=== PATIENT | male | born 1975 | race Caucasian/White ===

== ENCOUNTER 2018-07-15 19:12 | Observation (INO) | payer SELFPAY ==
[2018-07-15] MEDS ORDERED: Sodium Chloride 0.9% 10 ML Syringe FLUSH PRN (19:28)
[2018-07-15] MEDS ORDERED: HYDROmorphone 0.5 MG/0.5 ML SYRINGE IVPUSH ONE ×2 (20:01→23:01)
[2018-07-15] MEDS ORDERED: Ondansetron 4 MG/2 ML SDV IVPUSH STA (20:34)
[2018-07-15] MEDS ORDERED: Nitroglycerin 2% Oint 1 GM UD Packet TOP ONE (21:49)
[2018-07-15] MEDS ORDERED: Clopidogrel 75 MG Tab PO ONE (21:50)
[2018-07-15] MEDS ORDERED: Enoxaparin 100 MG/1 ML Syringe SUBCUT ONE (21:51)
--- NOTE | 2018-07-16 00:45 | EDM.PDOC ---
ED HPI GENERAL MEDICAL PROBLEM - General Chief Complaint: Chest Pain Stated Complaint: CHEST PAIN Time Seen by Provider: 07/15/18 19:23 Source of Information: Reports: Patient History Limitations: Reports: No Limitations - History of Present Illness INITIAL COMMENTS - FREE TEXT/NARRATIVE: The patient presents with chest pain. He says the pain started just as he was leaving [employer] in [place]. The pain is pressure like in his left chest. He has a little shortness of breath with it. He has no cough, congestion, runny nose, fever, or chills. He has no abdominal pain, nausea or vomiting. He did have an [facility] at age 24 according to the patient. He had a heart cath but no stents or CABG was needed. He has no swelling or pain in his legs. He does have a history or PEs. Onset: Gradual Duration: Hour(s): Location: Reports: Chest Quality: Reports: Pressure Severity: Moderate Improves with: Reports: None Worsens with: Reports: None Associated Symptoms: Reports: Chest Pain, Shortness of Breath. Denies: Cough, Fever/Chills, Headaches, Nausea/Vomiting Left Chest Pain Score (Numeric/FACES): 8 - Related Data Allergies Allergy/AdvReac Type Severity Reaction Status Date / Time Penicillins Allergy Anaphylactic Verified 07/15/18 19:23 Shock Sulfa (Sulfonamide Allergy Anaphylactic Verified 07/15/18 19:23 Antibiotics) Shock Home Meds: Home Meds Aspirin [Halfprin] 81 mg PO DAILY 07/15/18 [History] SitaGLIPtin [Januvia] 100 mg PO DAILY 07/15/18 [History] amLODIPine [Norvasc] 10 mg PO DAILY 07/15/18 [History] Past Medical History Cardiovascular History: Reports: [facility] Respiratory History: Reports: PE Endocrine/Metabolic History: Reports: Diabetes, Type II Social & Family History - Tobacco Use Smoking Status *Q: Current Every Day Smoker Years of Tobacco use: 25 Packs/Tins Daily: 0.5 - Caffeine Use Caffeine Use: Reports: Coffee, Soda - Recreational Drug Use Recreational Drug Use: No ED ROS GENERAL - Review of Systems Review Of Systems: See Below Constitutional: Reports: No Symptoms HEENT: Reports: No Symptoms Respiratory: Reports: Shortness of Breath Cardiovascular: Reports: Chest Pain Endocrine: Reports: No Symptoms GI/Abdominal: Reports: No Symptoms : Reports: No Symptoms Musculoskeletal: Reports: No Symptoms ED EXAM, GENERAL - Physical Exam Exam: See Below Exam Limited By: No Limitations General Appearance: Alert, No Apparent Distress Ears: Normal External Exam Nose: Normal Inspection Head: Atraumatic, Normocephalic Neck: Normal Inspection Respiratory/Chest: No Respiratory Distress, Lungs Clear, Normal Breath Sounds Cardiovascular: Regular Rate, Rhythm, No Edema, No Murmur GI/Abdominal: Soft, Non-Tender, No Organomegaly, No Mass Neurological: Alert, Oriented, No Motor/Sensory Deficits EKG INTERPRETATION EKG Date: 07/15/18 Time: 19:23 Rhythm: NSR Rate (Beats/Min): 94 [place]: Normal P-Wave: Present QRS: Normal ST-T: Normal QT: Normal Course - Vital Signs Last Recorded V/S: Last Vital Signs Temp 98.2 F 07/15/18 19:25 Pulse 96 07/15/18 19:25 Resp 17 07/15/18 19:25 BP 133/94 H 07/15/18 19:25 Pulse Ox 99 07/15/18 19:25 - Orders/Labs/Meds Orders: Active Orders 24 hr Category Date Time Status Cardiac Monitoring [RC] . DIRECTED Care 07/15/18 19:28 Active EKG Documentation Completion [RC] STAT Care 07/15/18 19:29 Active Oxygen Therapy [RC] PRN Care 07/15/18 19:28 Active Peripheral IV Care [RC] . DIRECTED Care 07/15/18 19:29 Active Chest 1V Frontal [CR] Stat Exams 07/15/18 19:29 Taken Sodium Chloride 0.9% [Saline Flush] Med 07/15/18 19:28 Active 10 ml FLUSH ASDIRECTED PRN Peripheral IV Insertion Adult [OM.PC] Stat Oth 07/15/18 19:28 Ordered Medication Orders Sodium Chloride (Saline Flush) 10 ml FLUSH ASDIRECTED PRN PRN Reason: Keep Vein Open Last Admin: 07/15/18 19:30 Dose: 10 ml Labs: Laboratory Tests 07/15/18 07/15/18 07/15/18 Range/Units 19:20 19:20 19:20 WBC 10.47 H (4.23-9.07) K/mm3 RBC 5.39 (4.63-6.08) M/mm3 Hgb 16.0 (13.7-17.5) gm/L Hct 45.6 (40.1-51.0) % MCV 84.6 (79.0-92.2) fl MCH 29.7 (25.7-32.2) pg MCHC 35.1 (32.2-35.5) g/dl RDW Std Deviation 42.0 (35.1-43.9) fL Plt Count 269 (163-337) K/mm3 MPV 9.7 (9.4-12.3) fl Neut % (Auto) 59.5 (34.0-67.9) % Lymph % (Auto) 30.9 (21.8-53.1) % [place] % (Auto) 6.3 (5.3-12.2) % Eos % (Auto) 2.7 (0.8-7.0) Baso % (Auto) 0.3 (0.1-1.2) % Neut # (Auto) 6.23 H (1.78-5.38) K/mm3 Lymph # (Auto) 3.24 (1.32-3.57) K/mm3 [place] # (Auto) 0.66 (0.30-0.82) K/mm3 Eos # (Auto) 0.28 (0.04-0.54) K/mm3 Baso # (Auto) 0.03 (0.01-0.08) K/mm3 D-Dimer, Quantitative < 0.19 L (0.19-0.50) mg/L Sodium 138 (136-145) mEq/L Potassium 3.4 L (3.5-5.1) mEq/L Chloride 102 (98-107) mEq/L Carbon Dioxide 25 (21-32) mEq/L Anion Gap 14.4 (5-15) BUN 13 (7-18) mg/dL Creatinine 1.1 (0.7-1.3) mg/dL Est Cr Clr Drug Dosing 83.46 mL/min Estimated GFR (MDRD) > 60 (>60) mL/min BUN/Creatinine Ratio 11.8 L (14-18) Glucose 156 H (74-106) mg/dL Calcium 8.6 (8.5-10.1) mg/dL Total Bilirubin 0.3 (0.2-1.0) mg/dL AST 14 L (15-37) U/L ALT 28 (16-63) U/L Alkaline Phosphatase 123 H (46-116) U/L Troponin I < 0.017 (0.00-0.056) ng/mL Total Protein 7.8 (6.4-8.2) g/dl Albumin 3.7 (3.4-5.0) g/dl Globulin 4.1 gm/dL Albumin/Globulin Ratio 0.9 L (1-2) Meds: Medications Generic Name Dose Route Start Last Admin Trade Name Freq PRN Reason Stop Dose Admin Sodium Chloride 10 ml 07/15/18 19:28 07/15/18 19:30 Saline Flush FLUSH 10 ml ASDIRECTED PRN Administration Keep Vein Open Discontinued Medications Generic Name Dose Route Start Last Admin Trade Name Freq PRN Reason Stop Dose Admin Clopidogrel Bisulfate 75 mg 07/15/18 21:50 07/15/18 22:14 Plavix PO 07/15/18 21:51 75 mg ONETIME ONE Administration Enoxaparin Sodium 100 mg 07/15/18 21:51 07/15/18 22:16 Lovenox SUBCUT 07/15/18 21:52 100 mg ONETIME ONE Administration Hydromorphone HCl 0.5 mg 07/15/18 20:01 07/15/18 20:31 Dilaudid IVPUSH 07/15/18 20:02 0.5 mg ONETIME ONE Administration Hydromorphone HCl 1 mg 07/15/18 23:01 07/15/18 23:14 Dilaudid IVPUSH 07/15/18 23:02 1 mg ONETIME ONE Administration Nitroglycerin 1 gm 07/15/18 21:49 07/15/18 22:17 Nitro-Bid 2% TOP 07/15/18 21:50 1 gm ONETIME ONE Administration Ondansetron HCl 4 mg 07/15/18 20:34 07/15/18 20:38 Zofran IVPUSH 07/15/18 20:35 4 mg ONETIME STA Administration - Re-Assessments/Exams Free Text/Narrative Re-Assessment/Exam: 07/16/18 00:44 I ordered an IV saline lock, EKG, CXR, and labs. The patient took some aspirin before arrival. His EKG shows a NSR with no acute changes. His WBC was slightly elevated. His K was low at 3.4. His glucose was elevated at 156. His Alk Phos was elevated at 123. His troponin was negative. He had more pain and he says nitro gives him a headache so I ordered some dilaudid. I feel he needs to be admitted for a chest pain rule out. He still has chest pain. I talked to Dr Pulido and she agreed but she did want plavix, nitro patch and lovenox. I ordered all of those. 07/16/18 00:48 Departure - Departure Time of Disposition: 00:50 Disposition: Refer to Observation Condition: Good Clinical Impression: Chest pain Qualifiers: Chest pain type: unspecified Qualified Code(s): R07.9 - Chest pain, unspecified - My Orders Last 24 Hours: My Active Orders 07/15/18 19:28 Cardiac Monitoring [RC] . DIRECTED Oxygen Therapy [RC] PRN Sodium Chloride 0.9% [Saline Flush] 10 ml FLUSH ASDIRECTED PRN Peripheral IV Insertion Adult [OM.PC] Stat 07/15/18 19:29 EKG Documentation Completion [RC] STAT Peripheral IV Care [RC] . DIRECTED Chest 1V Frontal [CR] Stat - Assessment/Plan Last 24 Hours: My Active Orders 07/15/18 19:28 Cardiac Monitoring [RC] . DIRECTED Oxygen Therapy [RC] PRN Sodium Chloride 0.9% [Saline Flush] 10 ml FLUSH ASDIRECTED PRN Peripheral IV Insertion Adult [OM.PC] Stat 07/15/18 19:29 EKG Documentation Completion [RC] STAT Peripheral IV Care [RC] . DIRECTED Chest 1V Frontal [CR] Stat
[2018-07-16] MEDS ORDERED: Simvastatin 20 MG Tab PO ONE (01:01)
[2018-07-16] MEDS ORDERED: Nitroglycerin 0.4 MG Tab.SL SL PRN (01:03)
[2018-07-16] MEDS ORDERED: Morphine 2 MG/ML Syringe IVPUSH PRN (01:04)
[2018-07-16] MEDS ORDERED: Acetaminophen 325 MG Tab PO PRN (01:05)
[2018-07-16] MEDS ORDERED: Temazepam 7.5 MG Cap PO PRN (01:06)
[2018-07-16] MEDS ORDERED: Clopidogrel 75 MG Tab PO ONE (01:08)
--- NOTE | 2018-07-16 07:39 | PCM.HP ---
H&P History of Present Illness - General Date of Service: 07/16/18 Admit Problem/Dx: Admission Diagnosis/Problem Admission Diagnosis/Problem Chest pain Source of Information: Patient, Old Records, Provider, RN History Limitations: Reports: No Limitations - History of Present Illness Initial Comments - Free Text/Narative: Noel Tenorio is a 42 yo male who presented to our ED yesterday evening with chest pain. The symptoms started while he was shopping in [place]. He described it a a pressure in his chest and mild shortness of breath. Denies any abdominal pain, nausea, vomiting, cough, congestion, [place], fever, or chills. Per the patient he did have an DE at age 24. Had a heart catheter but no stents or CABG were needed. He does have a history of prior PEs. In the ED a 12-lead EKG was obtained and interpreted by the ED provider as normal sinus rhythm at a rate of 94 bpm. No other abnormalities were noted. Temp is 98.2 Fahrenheit. Pulse 96. Respirations 17. BP 133/94. Pulse ox 99% . Labs were obtained. There is mild leukocytosis at 10.47. Hemoglobin 16. Hematocrit 45.6. He is normocytic. Bloods are good at 269,000. Neutrophils normal at 59.5%. D-dimer is less than 0.19. Sodium is 138. Potassium 3.4. Chloride 102. Carbon dioxide 25. Anion gap is 14.4. BUN is 13. Creatinine 1.1. EGFR greater than 60. Glucose is high at 156. Calcium 8.6. Liver enzymes looked good with AST at 14, ALT at 28, alkaline phospy elevated at 123. Troponin is negative at less than 0.017. Protein 7.8. Albumin 3.7. He started on Lovenox and Plavix. He is also given Dilaudid for pain and a nitroglycerin patch. Zofran was given for nausea. The patient did reportedly takes an aspirin prior to arrival. He carries a history of prior DE and PE. He also has type II DM. He is a current every day half pack per day smoker. His PCP is not in the area. And he is a full code. He is subsequently admitted to the medical floor on telemetry under observation status. Left Chest Pain Score (Numeric/FACES): 8 - Related Data Allergies/Adverse Reactions: Allergies Allergy/AdvReac Type Severity Reaction Status Date / Time Penicillins Allergy Anaphylactic Verified 07/15/18 19:23 Shock Sulfa (Sulfonamide Allergy Anaphylactic Verified 07/15/18 19:23 Antibiotics) Shock Home Medications: Home Meds Aspirin [Halfprin] 81 mg PO DAILY 07/15/18 [History] SitaGLIPtin [Januvia] 100 mg PO DAILY 07/15/18 [History] amLODIPine [Norvasc] 10 mg PO DAILY 07/15/18 [History] atorvaSTATin [Lipitor] 20 mg PO DAILY 07/16/18 [History] Past Medical History Cardiovascular History: Reports: DE Respiratory History: Reports: PE Endocrine/Metabolic History: Reports: Diabetes, Type II Social & Family History - Family History Family Medical History: Noncontributory - Tobacco Use Smoking Status *Q: Current Every Day Smoker Years of Tobacco use: 25 Packs/Tins Daily: 0.5 Second Hand Smoke Exposure: Yes - Caffeine Use Caffeine Use: Reports: Coffee, Soda - Recreational Drug Use Recreational Drug Use: No H&P Review of Systems - Review of Systems: Review Of Systems: See Below General: Reports: No Symptoms. Denies: Fever, Chills, Malaise, Weakness, Fatigue HEENT: Reports: No Symptoms. Denies: Post Nasal Drip, Sore Throat, Visual Changes Pulmonary: Denies: Shortness of Breath, Wheezing, Cough, Sputum Cardiovascular: Reports: Chest Pain. Denies: Palpitations, Dyspnea on Exertion , Edema, Lightheadedness Gastrointestinal: Reports: Abdominal Pain (left upper quadrant ), Diarrhea ( chronic loose stools ). Denies: Constipation, Distension, Nausea, Vomiting Genitourinary: Reports: No Symptoms Musculoskeletal: Reports: No Symptoms Skin: Reports: No Symptoms Psychiatric: Reports: No Symptoms Neurological: Reports: No Symptoms Hematologic/Lymphatic: Reports: No Symptoms Immunologic: Reports: No Symptoms Exam - Exam Exam: See Below - Vital Signs Vital Signs: Last Vital Signs Temp 98.2 F 07/16/18 00:32 Pulse 79 07/16/18 00:32 Resp 18 07/16/18 00:32 BP 133/85 07/16/18 00:32 Pulse Ox 94 L 07/16/18 00:32 Weight: 219 lb 8 oz - Exam Quality Assessment: DVT Prophylaxis General: Alert, Oriented, Cooperative HEENT: Conjunctiva Clear, EACs Clear, EOMI, Hearing Intact, Mucosa Moist & Powder[place] , Posterior Pharynx Clear, PERRLA Neck: Supple, Trachea Midline Lungs: Clear to Auscultation, Normal Respiratory Effort Cardiovascular: Regular Rate, Regular Rhythm GI/Abdominal Exam: Normal Bowel Sounds, Soft, No Distention, No Mass, Tender ( LUQ) (Male) Exam: Deferred Rectal (Males) Exam: Deferred Back Exam: Normal Inspection, Full Range of Motion Extremities: Normal Inspection, Normal Range of Motion, Non-Tender, No Pedal Edema, Normal Capillary Refill Peripheral Pulses: 2+: Radial (L), Radial (R), Posterior Tibial (L), Posterior Tibial (R), Dorsalis Pedis (L), Dorsalis Pedis (R) Skin: Warm, Dry, Intact Neurological: Cranial Nerves Intact (grossly ) Neuro Extensive - Mental Status: Alert, Oriented x3, Normal Mood/Affect, Normal Cognition, Memory Intact - Patient Data Lab Results Last 24 hrs: Laboratory Results - last 24 hr 07/15/18 07/15/18 07/15/18 Range/Units 19:20 19:20 19:20 WBC 10.47 H (4.23-9.07) K/mm3 RBC 5.39 (4.63-6.08) M/mm3 Hgb 16.0 (13.7-17.5) gm/L Hct 45.6 (40.1-51.0) % MCV 84.6 (79.0-92.2) fl MCH 29.7 (25.7-32.2) pg MCHC 35.1 (32.2-35.5) g/dl RDW Std Deviation 42.0 (35.1-43.9) fL Plt Count 269 (163-337) K/mm3 MPV 9.7 (9.4-12.3) fl Neut % (Auto) 59.5 (34.0-67.9) % Lymph % (Auto) 30.9 (21.8-53.1) % [place] % (Auto) 6.3 (5.3-12.2) % Eos % (Auto) 2.7 (0.8-7.0) Baso % (Auto) 0.3 (0.1-1.2) % Neut # (Auto) 6.23 H (1.78-5.38) K/mm3 Lymph # (Auto) 3.24 (1.32-3.57) K/mm3 [place] # (Auto) 0.66 (0.30-0.82) K/mm3 Eos # (Auto) 0.28 (0.04-0.54) K/mm3 Baso # (Auto) 0.03 (0.01-0.08) K/mm3 Neutrophils % (Manual) (40-60) % Band Neutrophils % (0-10) % Lymphocytes % (Manual) (20-40) % Atypical Lymphs % % Monocytes % (Manual) (2-10) % Eosinophils % (Manual) (0.8-7.0) % Basophils % (Manual) (0.2-1.2) Platelet Estimate RBC Morph Comment D-Dimer, Quantitative < 0.19 L (0.19-0.50) mg/L Sodium 138 (136-145) mEq/L Potassium 3.4 L (3.5-5.1) mEq/L Chloride 102 (98-107) mEq/L Carbon Dioxide 25 (21-32) mEq/L Anion Gap 14.4 (5-15) BUN 13 (7-18) mg/dL Creatinine 1.1 (0.7-1.3) mg/dL Est Cr Clr Drug Dosing 83.46 mL/min Estimated GFR (MDRD) > 60 (>60) mL/min BUN/Creatinine Ratio 11.8 L (14-18) Glucose 156 H (74-106) mg/dL Calcium 8.6 (8.5-10.1) mg/dL Magnesium (1.8-2.4) mg/dl Total Bilirubin 0.3 (0.2-1.0) mg/dL AST 14 L (15-37) U/L ALT 28 (16-63) U/L Alkaline Phosphatase 123 H (46-116) U/L Troponin I < 0.017 (0.00-0.056) ng/mL Total Protein 7.8 (6.4-8.2) g/dl Albumin 3.7 (3.4-5.0) g/dl Globulin 4.1 gm/dL Albumin/Globulin Ratio 0.9 L (1-2) Triglycerides (<150) mg/dL Cholesterol (<200) mg/dL LDL Cholesterol Direct (<100) mg/dL HDL Cholesterol (40-59) mg/dL 07/16/18 07/16/18 07/16/18 Range/Units 05:25 05:25 05:25 WBC 9.53 H (4.23-9.07) K/mm3 RBC 5.29 (4.63-6.08) M/mm3 Hgb 15.3 (13.7-17.5) gm/L Hct 45.3 (40.1-51.0) % MCV 85.6 (79.0-92.2) fl MCH 28.9 (25.7-32.2) pg MCHC 33.8 (32.2-35.5) g/dl RDW Std Deviation 41.8 (35.1-43.9) fL Plt Count 253 (163-337) K/mm3 MPV 9.6 (9.4-12.3) fl Neut % (Auto) (34.0-67.9) % Lymph % (Auto) (21.8-53.1) % [place] % (Auto) (5.3-12.2) % Eos % (Auto) (0.8-7.0) Baso % (Auto) (0.1-1.2) % Neut # (Auto) (1.78-5.38) K/mm3 Lymph # (Auto) (1.32-3.57) K/mm3 [place] # (Auto) (0.30-0.82) K/mm3 Eos # (Auto) (0.04-0.54) K/mm3 Baso # (Auto) (0.01-0.08) K/mm3 Neutrophils % (Manual) 46 (40-60) % Band Neutrophils % 1 (0-10) % Lymphocytes % (Manual) 44 H (20-40) % Atypical Lymphs % 0 % Monocytes % (Manual) 5 (2-10) % Eosinophils % (Manual) 2 (0.8-7.0) % Basophils % (Manual) 2 H (0.2-1.2) Platelet Estimate Adequate RBC Morph Comment Normal D-Dimer, Quantitative (0.19-0.50) mg/L Sodium 139 (136-145) mEq/L Potassium 3.9 (3.5-5.1) mEq/L Chloride 105 (98-107) mEq/L Carbon Dioxide 26 (21-32) mEq/L Anion Gap 11.9 (5-15) BUN 16 (7-18) mg/dL Creatinine 1.1 (0.7-1.3) mg/dL Est Cr Clr Drug Dosing 83.46 mL/min Estimated GFR (MDRD) > 60 (>60) mL/min BUN/Creatinine Ratio 14.5 (14-18) Glucose 97 (74-106) mg/dL Calcium 8.3 L (8.5-10.1) mg/dL Magnesium 2.1 (1.8-2.4) mg/dl Total Bilirubin (0.2-1.0) mg/dL AST (15-37) U/L ALT (16-63) U/L Alkaline Phosphatase (46-116) U/L Troponin I < 0.017 (0.00-0.056) ng/mL Total Protein (6.4-8.2) g/dl Albumin (3.4-5.0) g/dl Globulin gm/dL Albumin/Globulin Ratio (1-2) Triglycerides 230 H (<150) mg/dL Cholesterol 184 (<200) mg/dL LDL Cholesterol Direct 136 H* (<100) mg/dL HDL Cholesterol 26.0 L (40-59) mg/dL Result Diagrams: 07/16/18 05:25 07/16/18 05:25 - Problem List (1) Chest pain SNOMED Code(s): 33332752 ICD Code: R07.9 - CHEST PAIN, UNSPECIFIED Status: Acute Priority: High Current Visit: Yes Qualifiers: Chest pain type: unspecified Qualified Code(s): R07.9 - Chest pain, unspecified (2) Type II diabetes mellitus SNOMED Code(s): 49757199 ICD Code: E11.9 - TYPE 2 DIABETES MELLITUS WITHOUT COMPLICATIONS Status: Chronic Priority: Medium Current Visit: Yes Qualifiers: Diabetes mellitus middle or intermediate school principal insulin use: without middle or intermediate school principal use Diabetes mellitus complication status: without complication Qualified Code(s): E11.9 - Type 2 diabetes mellitus without complications (3) History of pulmonary embolus (PE) SNOMED Code(s): 243179283 ICD Code: Z86.711 - PERSONAL HISTORY OF PULMONARY EMBOLISM Status: Chronic Priority: Low Current Visit: No (4) HLD (hyperlipidemia) SNOMED Code(s): 76156240 ICD Code: E78.5 - HYPERLIPIDEMIA, UNSPECIFIED Status: Acute Priority: Medium Current Visit: Yes Qualifiers: Hyperlipidemia type: unspecified Qualified Code(s): E78.5 - Hyperlipidemia , unspecified (5) Tobacco use disorder SNOMED Code(s): 220027588 ICD Code: F17.200 - NICOTINE DEPENDENCE, UNSPECIFIED, UNCOMPLICATED Status : Acute Priority: High Current Visit: Yes Problem List Initiated/Reviewed/Updated: Yes Orders Last 24hrs: Active Orders 24 hr Category Date Time Status Patient Status [ADT] Routine ADT 07/15/18 23:50 Active Cardiac Monitoring [RC] . DIRECTED Care 07/15/18 19:28 Active EKG Documentation Completion [RC] ASDIRECTED Care 07/16/18 08:00 Active EKG Documentation Completion [RC] STAT Care 07/15/18 19:29 Active Oxygen Therapy [RC] PRN Care 07/15/18 19:28 Active Peripheral IV Care [RC] Q2HR Care 07/15/18 19:29 Active Heart Healthy Diet [DIET] Diet 07/16/18 Breakfast Active Chest 1V Frontal [CR] Stat Exams 07/15/18 19:29 Taken Echo Comp wo Cont [US] Routine Exams 07/16/18 00:59 Ordered BASIC METABOLIC PANEL,BMP [CHEM] AM Lab 07/17/18 05:11 Ordered BASIC METABOLIC PANEL,BMP [CHEM] AM Lab 07/18/18 05:11 Ordered BASIC METABOLIC PANEL,BMP [CHEM] AM Lab 07/19/18 05:11 Ordered BASIC METABOLIC PANEL,BMP [CHEM] AM Lab 07/20/18 05:11 Ordered CBC WITH AUTO DIFF [HEME] AM Lab 07/17/18 05:11 Ordered CBC WITH AUTO DIFF [HEME] AM Lab 07/18/18 05:11 Ordered CBC WITH AUTO DIFF [HEME] AM Lab 07/19/18 05:11 Ordered CBC WITH AUTO DIFF [HEME] AM Lab 07/20/18 05:11 Ordered MAGNESIUM [CHEM] AM Lab 07/17/18 05:11 Ordered MAGNESIUM [CHEM] AM Lab 07/18/18 05:11 Ordered MAGNESIUM [CHEM] AM Lab 07/19/18 05:11 Ordered MAGNESIUM [CHEM] AM Lab 07/20/18 05:11 Ordered Acetaminophen [Tylenol] Med 07/16/18 01:05 Active 650 mg PO Q6H PRN Alogliptin Benzoate [Alogliptin] Med 07/16/18 09:00 Active 25 mg PO DAILY Aspirin [Halfprin] Med 07/16/18 09:00 Active 81 mg PO DAILY Clopidogrel [Plavix] Med 07/16/18 09:00 Active 75 mg PO DAILY HCTZ/Triamterene [Dyazide 25-37.5 MG] Med 07/16/18 09:00 Active 1 each PO DAILY Metoprolol Tartrate [Lopressor] Med 07/16/18 09:00 Active 25 mg PO BID Morphine Med 07/16/18 01:04 Active 0.5 mg IVPUSH Q2H PRN Nitroglycerin [Nitrostat] Med 07/16/18 01:03 Active 0.4 mg SL Q5M PRN Sodium Chloride 0.9% [Saline Flush] Med 07/15/18 19:28 Active 10 ml FLUSH ASDIRECTED PRN Temazepam [Restoril] Med 07/16/18 01:06 Active 7.5 mg PO BEDTIME PRN amLODIPine [Norvasc] Med 07/16/18 09:00 Active 10 mg PO DAILY Peripheral IV Insertion Adult [OM.PC] Stat Oth 07/15/18 19:28 Ordered Resuscitation Status Routine Resus Stat 07/16/18 01:18 Ordered EKG 12 Lead [EK] Routine Ther 07/16/18 08:00 Ordered Medication Orders Acetaminophen (Tylenol) 650 mg PO Q6H PRN PRN Reason: Pain/Fever Alogliptin Benzoate (Alogliptin) 25 mg PO DAILY [facility] Amlodipine Besylate (Norvasc) 10 mg PO DAILY [facility] Aspirin (Halfprin) 81 mg PO DAILY [facility] Clopidogrel Bisulfate (Plavix) 75 mg PO DAILY [facility] Metoprolol Tartrate (Lopressor) 25 mg PO BID [facility] Morphine Sulfate (Morphine) 0.5 mg IVPUSH Q2H PRN PRN Reason: chest pain Nitroglycerin (Nitrostat) 0.4 mg SL Q5M PRN PRN Reason: Chest Pain Sodium Chloride (Saline Flush) 10 ml FLUSH ASDIRECTED PRN PRN Reason: Keep Vein Open Last Admin: 07/15/18 19:30 Dose: 10 ml Temazepam (Restoril) 7.5 mg PO BEDTIME PRN PRN Reason: Insomnia Triamterene/HCTZ (Dyazide 25-37.5 Mg) 1 each PO DAILY [facility] Assessment/Plan Comment:: I/P: Acute: Atypical chest pain -Reports pain started earlier in day on 07/15/18 -Hx/o DE, PE, Type II DM; Reportedly had heart cath but no CABG or stents were placed -Accompanied by SOB -Troponin negative in ED and on floor (<0.017) -Lipid panel: Triglycerides 230, Total cholesterol 184, LDL 136, HDL 26 -Nitro patch to be removed today -Stress test - outpatient -Echo today -laboratory monitor -PRN Nitroglycerine -Was given 1mg/kg lovenox in ED, started on plavix, ASA continued -Statin Tobacco use disorder -Nicotine patch as ordered -Discuss smoking cessation -Consider smoking cessation aids on discharge Medical non-compliance -Notes that he stopped taking all medications recently and then resumed -Last refilled medications in August 2017 per pharmacy in [place] -Attempted to run check on narcotic history - nothing in area, we do not have access to [place] records -No PCP in area - Needs to establish Chronic: Hx/ of DE Hx/ of PE Type II DM - A1C 5.7 Plan: Admit to medical floor on telemetry, observation status Other orders as indicated above Home meds as ordered DVT prophylaxis GI prophylaxis: Pepcid Code status: Full code; PCP: not from area
[2018-07-16] MEDS ORDERED: Ondansetron 4 MG/2 ML SDV IV PRN (08:44)
[2018-07-16] MEDS ORDERED: Ondansetron 4 MG Tab.DIS PO PRN (08:44)
[2018-07-16] MEDS ORDERED: Albuterol/Ipratropium 3.0-0.5 MG/3 ML Neb Soln NEB PRN (08:44)
[2018-07-16] MEDS ORDERED: Metoprolol Tartrate 25 MG Tab PO SCH (09:00)
[2018-07-16] MEDS ORDERED: Famotidine 20 MG Tab PO SCH (09:00)
[2018-07-16] MEDS ORDERED: Aspirin 81 MG Tab.EC PO SCH (09:00)
[2018-07-16] MEDS ORDERED: Nicotine 14 MG/24 Hr Patch TRDERM SCH (09:00)
[2018-07-16] MEDS ORDERED: amLODIPine 10 MG Tab PO SCH (09:00)
[2018-07-16] MEDS ORDERED: Hydrochlorothiazide/Triamterene 25-37.5 MG Cap PO SCH (09:00)
[2018-07-16] MEDS ORDERED: Clopidogrel 75 MG Tab PO SCH (09:00)
[2018-07-16] MEDS ORDERED: Insulin Lispro 100 Unit/ML 3 ML KwikPen SUBCUT SCH (11:00)
[2018-07-16] MEDS ORDERED: Ibuprofen 600 MG Tab PO ONE (12:00)
--- NOTE | 2018-07-16 12:05 | PCM.DCSUM1 ---
Discharge Summary - Hospital Course HPI Initial Comments: Noel Tenorio is a 42 yo male who presented to our ED yesterday evening with chest pain. The symptoms started while he was shopping in [place]. He described it a a pressure in his chest and mild shortness of breath. Denies any abdominal pain, nausea, vomiting, cough, congestion, Lynda, fever, or chills. Per the patient he did have an MA at age 24. Had a heart catheter but no stents or CABG were needed. He does have a history of prior PEs. In the ED a 12-lead EKG was obtained and interpreted by the ED provider as normal sinus rhythm at a rate of 94 bpm. No other abnormalities were noted. Temp is 98.2 Fahrenheit. Pulse 96. Respirations 17. BP 133/94. Pulse ox 99% . Labs were obtained. There is mild leukocytosis at 10.47. Hemoglobin 16. Hematocrit 45.6. He is normocytic. Bloods are good at 269,000. Neutrophils normal at 59.5%. D-dimer is less than 0.19. Sodium is 138. Potassium 3.4. Chloride 102. Carbon dioxide 25. Anion gap is 14.4. BUN is 13. Creatinine 1.1. EGFR greater than 60. Glucose is high at 156. Calcium 8.6. Liver enzymes looked good with AST at 14, ALT at 28, alkaline phospy elevated at 123. Troponin is negative at less than 0.017. Protein 7.8. Albumin 3.7. He started on Lovenox and Plavix. He is also given Dilaudid for pain and a nitroglycerin patch. Zofran was given for nausea. The patient did reportedly takes an aspirin prior to arrival. He carries a history of prior MA and PE. He also has type II DM. He is a current every day half pack per day smoker. His PCP is not in the area. And he is a full code. He is subsequently admitted to the medical floor on telemetry under observation status. Diagnosis: Stroke: No - Discharge Data Discharge Date: 07/16/18 (Admit date: 07/16/18) Discharge Disposition: Home, Self-Care 01 Condition: Good - Discharge Diagnosis/Problem(s) (1) Chest pain SNOMED Code(s): 14195438 ICD Code: R07.9 - CHEST PAIN, UNSPECIFIED Status: Acute Priority: High Current Visit: Yes Qualifiers: Chest pain type: unspecified Qualified Code(s): R07.9 - Chest pain, unspecified (2) Type II diabetes mellitus SNOMED Code(s): 68135205 ICD Code: E11.9 - TYPE 2 DIABETES MELLITUS WITHOUT COMPLICATIONS Status: Chronic Priority: Medium Current Visit: Yes Qualifiers: Diabetes mellitus terminal superintendent insulin use: without skilled nursing use Diabetes mellitus complication status: without complication Qualified Code(s): E11.9 - Type 2 diabetes mellitus without complications (3) History of pulmonary embolus (PE) SNOMED Code(s): 093206639 ICD Code: Z86.711 - PERSONAL HISTORY OF PULMONARY EMBOLISM Status: Chronic Priority: Low Current Visit: No (4) HLD (hyperlipidemia) SNOMED Code(s): 74813868 ICD Code: E78.5 - HYPERLIPIDEMIA, UNSPECIFIED Status: Acute Priority: Medium Current Visit: Yes Qualifiers: Hyperlipidemia type: unspecified Qualified Code(s): E78.5 - Hyperlipidemia , unspecified (5) Tobacco use disorder SNOMED Code(s): 283387906 ICD Code: F17.200 - NICOTINE DEPENDENCE, UNSPECIFIED, UNCOMPLICATED Status : Acute Priority: High Current Visit: Yes - Patient Summary/Data Labs Pending at D/C: Awaiting echo results Recommended Follow-up Testing/Procedures: Follow-up with PCP the week after discharge. 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 He is refusing patches/assistance Medical non-compliance -Notes that he stopped taking all medications recently and then resumed -Last refilled medications in August 2017 per pharmacy in [place] -Attempted to run check on narcotic history - nothing in area, we do not have access to [place] records -No PCP in area - Needs to establish Chronic: Hx/ of MA Hx/ of PE Type II DM - A1C 5.7 Plan: Admit to medical floor on telemetry, observation status Other orders as indicated above Home meds as ordered DVT prophylaxis GI prophylaxis: Pepcid Code status: Full code; PCP: not from area Overall Noel did ok. He continued to have some chest pain and developed a headache from the nitroglycerine. This was discontinued. Labs continued to look good. Vital signs including HR and BP were very good during his stay. He continued to request dilaudid as he says nitroglycerine does not work. He also complained of some vague abdominal pain prior to discharge however he was ok with discharge. He is new to the area from [place]. He did tell me he quit taking many of his medications and then slowly resumed some recently. He was provided prescriptions for many of his medications as he stated he was out of many and needed refills. His lipid panel reinforces that he needs to continue his statin. A1C was checked and found to be 5.7. Explained to patient that we ruled out lung clots or heart attacks. He was given a prescription for nitroglycerine tablets and then his home meds as indicated. He was instructed to return to the ED or contact a PCP or walk-in clinic should pain worsen or change. This case was discussed in-depth with Dr. Pulido, Hospitalist. He was scheduled for a follow-up appointment next week to establish with a PCP as well as a stress test. Echo was obtained and results will be forwarded to PCP. I personally had a discussion with Noel about his smoking status. He states he has been cutting back and is now down from 1.5 packs per day to 0.5 packs per day. He declined tobacco cessation products such as patches or gum. He stated he has been doing well without them. We discussed options for help such as the [place] Quits line and his PCP, which would be excellent resources. - Patient Instructions Diet: Heart Healthy Diet Activity: As Tolerated Showering/Bathing: May Shower Notify Provider of: Fever, Increased Pain, Nausea and/or Vomiting - Discharge Plan *PRESCRIPTION DRUG MONITORING PROGRAM REVIEWED*: Yes *COPY OF PRESCRIPTION DRUG MONITORING REPORT IN PATIENT ILIA: Not Applicable Prescriptions/Med Rec: amLODIPine Besylate [Norvasc] 10 mg PO DAILY #20 tablet Aspirin [Halfprin] 81 mg PO DAILY #20 tab.ec Nitroglycerin [Nitrostat] 0.4 mg SL Q5M PRN #20 tab.sl PRN Reason: Chest Pain Home Medications: Home Meds SitaGLIPtin [Januvia] 100 mg PO DAILY 07/15/18 [History] Aspirin [Halfprin] 81 mg PO DAILY #20 tab.ec 07/16/18 [Rx] Nitroglycerin [Nitrostat] 0.4 mg SL Q5M PRN #20 tab.sl 07/16/18 [Rx] amLODIPine Besylate [Norvasc] 10 mg PO DAILY #20 tablet 07/16/18 [Rx] Patient Handouts: Coping with Quitting Smoking, Nonspecific Chest Pain, Easy-to -Read Forms: ED Department Discharge Referrals: Mary Powers MD [Physician] - - Discharge Summary/Plan Comment DC Time >30 min.: Yes (45 mins ) - General Info Date of Service: 07/16/18 Admission Dx/Problem (Free Text: Admission Diagnosis/Problem Admission Diagnosis/Problem Chest pain Subjective Update: In to see Noel. He is still having some chest pain and requests some pain medications for this. Explained how this is likely a musculoskeletal issue and narcotics are not indicated. He was given some ibuprofen prior to discharge. He describes some mile LUQ abdominal pain. No other complaints. No nursing complaints. He will be discharged today with plan for follow-up outpatient stress test and PCP visit. Functional Status: Reports: Pain Controlled, Tolerating Diet, Ambulating, Urinating. Denies: New Symptoms - Review of Systems General: Reports: No Symptoms. Denies: Fever, Weakness, Fatigue, Malaise, Chills HEENT: Reports: No Symptoms. Denies: Ear Pain, Eye Pain, Sore Throat Pulmonary: Reports: No Symptoms. Denies: Shortness of Breath, Cough, Sputum, Wheezing Cardiovascular: Reports: Chest Pain (left chest into arm), Lightheadedness ( chronic). Denies: Palpitations, Dyspnea on Exertion, Edema Gastrointestinal: Reports: Abdominal Pain (MIld LUQ), Diarrhea (chronic loose stools ). Denies: Constipation, Decreased Appetite, Nausea, Vomiting Genitourinary: Reports: No Symptoms Musculoskeletal: Reports: No Symptoms Skin: Reports: No Symptoms Neurological: Reports: No Symptoms Psychiatric: Reports: No Symptoms - Patient Data Vitals - Most Recent: Last Vital Signs Temp 98.2 F 07/16/18 08:57 Pulse 70 07/16/18 08:57 Resp 16 07/16/18 08:57 BP 120/86 07/16/18 09:01 Pulse Ox 95 07/16/18 08:57 Weight - Most Recent: 219 lb 8 oz I&O - Last 24 hours: Intake & Output 07/15/18 07/16/18 07/16/18 22:59 06:59 14:59 Intake Total 800 0 Balance 800 0 Lab Results - Last 24 hrs: Laboratory Results - last 24 hr 07/15/18 07/15/18 07/15/18 Range/Units 19:20 19:20 19:20 WBC 10.47 H (4.23-9.07) K/mm3 RBC 5.39 (4.63-6.08) M/mm3 Hgb 16.0 (13.7-17.5) gm/L Hct 45.6 (40.1-51.0) % MCV 84.6 (79.0-92.2) fl MCH 29.7 (25.7-32.2) pg MCHC 35.1 (32.2-35.5) g/dl RDW Std Deviation 42.0 (35.1-43.9) fL Plt Count 269 (163-337) K/mm3 MPV 9.7 (9.4-12.3) fl Neut % (Auto) 59.5 (34.0-67.9) % Lymph % (Auto) 30.9 (21.8-53.1) % [place] % (Auto) 6.3 (5.3-12.2) % Eos % (Auto) 2.7 (0.8-7.0) Baso % (Auto) 0.3 (0.1-1.2) % Neut # (Auto) 6.23 H (1.78-5.38) K/mm3 Lymph # (Auto) 3.24 (1.32-3.57) K/mm3 [place] # (Auto) 0.66 (0.30-0.82) K/mm3 Eos # (Auto) 0.28 (0.04-0.54) K/mm3 Baso # (Auto) 0.03 (0.01-0.08) K/mm3 Neutrophils % (Manual) (40-60) % Band Neutrophils % (0-10) % Lymphocytes % (Manual) (20-40) % Atypical Lymphs % % Monocytes % (Manual) (2-10) % Eosinophils % (Manual) (0.8-7.0) % Basophils % (Manual) (0.2-1.2) Platelet Estimate RBC Morph Comment D-Dimer, Quantitative < 0.19 L (0.19-0.50) mg/L Sodium 138 (136-145) mEq/L Potassium 3.4 L (3.5-5.1) mEq/L Chloride 102 (98-107) mEq/L Carbon Dioxide 25 (21-32) mEq/L Anion Gap 14.4 (5-15) BUN 13 (7-18) mg/dL Creatinine 1.1 (0.7-1.3) mg/dL Est Cr Clr Drug Dosing 83.46 mL/min Estimated GFR (MDRD) > 60 (>60) mL/min BUN/Creatinine Ratio 11.8 L (14-18) Glucose 156 H (74-106) mg/dL Hemoglobin A1c (4.50-6.20) % Calcium 8.6 (8.5-10.1) mg/dL Magnesium (1.8-2.4) mg/dl Total Bilirubin 0.3 (0.2-1.0) mg/dL AST 14 L (15-37) U/L ALT 28 (16-63) U/L Alkaline Phosphatase 123 H (46-116) U/L Troponin I < 0.017 (0.00-0.056) ng/mL Total Protein 7.8 (6.4-8.2) g/dl Albumin 3.7 (3.4-5.0) g/dl Globulin 4.1 gm/dL Albumin/Globulin Ratio 0.9 L (1-2) Triglycerides (<150) mg/dL Cholesterol (<200) mg/dL LDL Cholesterol Direct (<100) mg/dL HDL Cholesterol (40-59) mg/dL 07/16/18 07/16/18 07/16/18 Range/Units 05:02 05:25 05:25 WBC 9.53 H (4.23-9.07) K/mm3 RBC 5.29 (4.63-6.08) M/mm3 Hgb 15.3 (13.7-17.5) gm/L Hct 45.3 (40.1-51.0) % MCV 85.6 (79.0-92.2) fl MCH 28.9 (25.7-32.2) pg MCHC 33.8 (32.2-35.5) g/dl RDW Std Deviation 41.8 (35.1-43.9) fL Plt Count 253 (163-337) K/mm3 MPV 9.6 (9.4-12.3) fl Neut % (Auto) (34.0-67.9) % Lymph % (Auto) (21.8-53.1) % [place] % (Auto) (5.3-12.2) % Eos % (Auto) (0.8-7.0) Baso % (Auto) (0.1-1.2) % Neut # (Auto) (1.78-5.38) K/mm3 Lymph # (Auto) (1.32-3.57) K/mm3 [place] # (Auto) (0.30-0.82) K/mm3 Eos # (Auto) (0.04-0.54) K/mm3 Baso # (Auto) (0.01-0.08) K/mm3 Neutrophils % (Manual) 46 (40-60) % Band Neutrophils % 1 (0-10) % Lymphocytes % (Manual) 44 H (20-40) % Atypical Lymphs % 0 % Monocytes % (Manual) 5 (2-10) % Eosinophils % (Manual) 2 (0.8-7.0) % Basophils % (Manual) 2 H (0.2-1.2) Platelet Estimate Adequate RBC Morph Comment Normal D-Dimer, Quantitative (0.19-0.50) mg/L Sodium 139 (136-145) mEq/L Potassium 3.9 (3.5-5.1) mEq/L Chloride 105 (98-107) mEq/L Carbon Dioxide 26 (21-32) mEq/L Anion Gap 11.9 (5-15) BUN 16 (7-18) mg/dL Creatinine 1.1 (0.7-1.3) mg/dL Est Cr Clr Drug Dosing 83.46 mL/min Estimated GFR (MDRD) > 60 (>60) mL/min BUN/Creatinine Ratio 14.5 (14-18) Glucose 97 (74-106) mg/dL Hemoglobin A1c 5.70 (4.50-6.20) % Calcium 8.3 L (8.5-10.1) mg/dL Magnesium 2.1 (1.8-2.4) mg/dl Total Bilirubin (0.2-1.0) mg/dL AST (15-37) U/L ALT (16-63) U/L Alkaline Phosphatase (46-116) U/L Troponin I < 0.017 (0.00-0.056) ng/mL Total Protein (6.4-8.2) g/dl Albumin (3.4-5.0) g/dl Globulin gm/dL Albumin/Globulin Ratio (1-2) Triglycerides (<150) mg/dL Cholesterol (<200) mg/dL LDL Cholesterol Direct (<100) mg/dL HDL Cholesterol (40-59) mg/dL 07/16/18 Range/Units 05:25 WBC (4.23-9.07) K/mm3 RBC (4.63-6.08) M/mm3 Hgb (13.7-17.5) gm/L Hct (40.1-51.0) % MCV (79.0-92.2) fl MCH (25.7-32.2) pg MCHC (32.2-35.5) g/dl RDW Std Deviation (35.1-43.9) fL Plt Count (163-337) K/mm3 MPV (9.4-12.3) fl Neut % (Auto) (34.0-67.9) % Lymph % (Auto) (21.8-53.1) % [place] % (Auto) (5.3-12.2) % Eos % (Auto) (0.8-7.0) Baso % (Auto) (0.1-1.2) % Neut # (Auto) (1.78-5.38) K/mm3 Lymph # (Auto) (1.32-3.57) K/mm3 [place] # (Auto) (0.30-0.82) K/mm3 Eos # (Auto) (0.04-0.54) K/mm3 Baso # (Auto) (0.01-0.08) K/mm3 Neutrophils % (Manual) (40-60) % Band Neutrophils % (0-10) % Lymphocytes % (Manual) (20-40) % Atypical Lymphs % % Monocytes % (Manual) (2-10) % Eosinophils % (Manual) (0.8-7.0) % Basophils % (Manual) (0.2-1.2) Platelet Estimate RBC Morph Comment D-Dimer, Quantitative (0.19-0.50) mg/L Sodium (136-145) mEq/L Potassium (3.5-5.1) mEq/L Chloride (98-107) mEq/L Carbon Dioxide (21-32) mEq/L Anion Gap (5-15) BUN (7-18) mg/dL Creatinine (0.7-1.3) mg/dL Est Cr Clr Drug Dosing mL/min Estimated GFR (MDRD) (>60) mL/min BUN/Creatinine Ratio (14-18) Glucose (74-106) mg/dL Hemoglobin A1c (4.50-6.20) % Calcium (8.5-10.1) mg/dL Magnesium (1.8-2.4) mg/dl Total Bilirubin (0.2-1.0) mg/dL AST (15-37) U/L ALT (16-63) U/L Alkaline Phosphatase (46-116) U/L Troponin I (0.00-0.056) ng/mL Total Protein (6.4-8.2) g/dl Albumin (3.4-5.0) g/dl Globulin gm/dL Albumin/Globulin Ratio (1-2) Triglycerides 230 H (<150) mg/dL Cholesterol 184 (<200) mg/dL LDL Cholesterol Direct 136 H* (<100) mg/dL HDL Cholesterol 26.0 L (40-59) mg/dL Med Orders - Current: Current Medications Acetaminophen (Tylenol) 650 mg PO Q6H PRN PRN Reason: Pain/Fever Last Admin: 07/16/18 09:01 Dose: 650 mg Albuterol/Ipratropium (Duoneb 3.0-0.5 Mg/3 Ml) 3 ml NEB Q4H PRN PRN Reason: Shortness Of Breath/wheezing Alogliptin Benzoate (Alogliptin) 25 mg PO DAILY [facility] Last Admin: 07/16/18 09:01 Dose: 25 mg Amlodipine Besylate (Norvasc) 10 mg PO DAILY [facility] Last Admin: 07/16/18 09:01 Dose: 10 mg Aspirin (Halfprin) 81 mg PO DAILY [facility] Last Admin: 07/16/18 09:00 Dose: 81 mg Clopidogrel Bisulfate (Plavix) 75 mg PO DAILY [facility] Last Admin: 07/16/18 09:00 Dose: 75 mg Famotidine (Pepcid) 20 mg PO BID [facility] Last Admin: 07/16/18 11:29 Dose: 20 mg Insulin Human Lispro (Humalog) 0 unit SUBCUT QIDACANDBED [facility]; Protocol Metoprolol Tartrate (Lopressor) 25 mg PO BID [facility] Last Admin: 07/16/18 09:07 Dose: Not Given Miscellaneous Information (Remove Patch) 0 ea TRDERM DAILY [facility] Morphine Sulfate (Morphine) 0.5 mg IVPUSH Q2H PRN PRN Reason: chest pain Nicotine (Habitrol) 14 mg TRDERM DAILY [facility] Last Admin: 07/16/18 09:01 Dose: Not Given Nitroglycerin (Nitrostat) 0.4 mg SL Q5M PRN PRN Reason: Chest Pain Ondansetron HCl (Zofran Odt) 4 mg PO Q6H PRN PRN Reason: nausea, able to take PO Ondansetron HCl (Zofran) 4 mg IV Q6H PRN PRN Reason: Nausea/Vomiting Simvastatin (Zocor) 20 mg PO BEDTIME [facility] Sodium Chloride (Saline Flush) 10 ml FLUSH ASDIRECTED PRN PRN Reason: Keep Vein Open Last Admin: 07/15/18 19:30 Dose: 10 ml Temazepam (Restoril) 7.5 mg PO BEDTIME PRN PRN Reason: Insomnia Triamterene/HCTZ (Dyazide 25-37.5 Mg) 1 each PO DAILY [facility] Last Admin: 07/16/18 09:01 Dose: 1 each Discontinued Medications Clopidogrel Bisulfate (Plavix) 75 mg PO ONETIME ONE Stop: 07/15/18 21:51 Last Admin: 07/15/18 22:14 Dose: 75 mg Clopidogrel Bisulfate (Plavix) 225 mg PO ONETIME ONE Stop: 07/16/18 01:09 Last Admin: 07/16/18 02:11 Dose: 225 mg Enoxaparin Sodium (Lovenox) 100 mg SUBCUT ONETIME ONE Stop: 07/15/18 21:52 Last Admin: 07/15/18 22:16 Dose: 100 mg Hydromorphone HCl (Dilaudid) 0.5 mg IVPUSH ONETIME ONE Stop: 07/15/18 20:02 Last Admin: 07/15/18 20:31 Dose: 0.5 mg Hydromorphone HCl (Dilaudid) 1 mg IVPUSH ONETIME ONE Stop: 07/15/18 23:02 Last Admin: 07/15/18 23:14 Dose: 1 mg Ibuprofen (Motrin) 600 mg PO ONETIME ONE Stop: 07/16/18 12:01 Nitroglycerin (Nitro-Bid 2%) 1 gm TOP ONETIME ONE Stop: 07/15/18 21:50 Last Admin: 07/15/18 22:17 Dose: 1 gm Ondansetron HCl (Zofran) 4 mg IVPUSH ONETIME STA Stop: 07/15/18 20:35 Last Admin: 07/15/18 20:38 Dose: 4 mg Simvastatin (Zocor) 20 mg PO ONETIME ONE Stop: 07/16/18 01:02 Last Admin: 07/16/18 02:11 Dose: 20 mg - Exam Quality Assessment: Reports: DVT Prophylaxis General: Reports: Alert, Oriented, Cooperative, No Acute Distress HEENT: Reports: Pupils Equal, Pupils Reactive, EOMI, Mucous Membr. Moist/[place] Neck: Reports: Supple, Trachea Midline, No JVD, Lymphadenopathy Lungs: Reports: Clear to Auscultation, Normal Respiratory Effort Cardiovascular: Reports: Regular Rate, Regular Rhythm GI/Abdominal Exam: Normal Bowel Sounds, Soft, No Organomegaly, No Distention, No Abnormal Bruit, No Mass, Pelvis Stable, Tender (mild LUQ) (Male) Exam: Deferred Rectal (Males) Exam: Deferred Back Exam: Reports: Normal Inspection, Full Range of Motion Extremities: Normal Inspection, Normal Range of Motion, Non-Tender, No Pedal Edema, Normal Capillary Refill Skin: Reports: Warm, Dry, Intact Neurological: Reports: No New Focal Deficit Psy/Mental Status: Reports: Alert, Normal Affect, Normal Mood
--- NOTE | 2018-07-16 17:16 | CR ---
Chest: Portable view of the chest was obtained. Comparison: No prior chest x-ray. Heart size is normal. Upper mediastinum is within normal limits. Slight pleural thickening noted along the right lateral chest which is felt to be incidental. No acute parenchymal change is seen within either lung. Bony structures are grossly intact. Impression: 1. Incidental findings. Nothing acute is identified on portable chest x-ray. Diagnostic code #2
[2018-07-16] MEDS ORDERED: Simvastatin 20 MG Tab PO SCH (21:00)
== END 2018-07-16 14:00 | disposition home or self-care (01) ==
LOC: JD.ED 19:12 → JD.MS 23:50
PROVIDERS: ADMIT Internal Medicine Cardiovascular Disease; ATTEND Internal Medicine Cardiovascular Disease
DX: R07.89 Other chest pain (principal); E11.9 Type 2 diabetes mellitus without complications; E78.5 Hyperlipidemia, unspecified; F17.210 Nicotine dependence, cigarettes, uncomplicated; I25.2 Old myocardial infarction; Z79.84 Long term (current) use of oral hypoglycemic drugs; Z79.899 Other long term (current) drug therapy; Z88.0 Allergy status to penicillin; Z88.2 Allergy status to sulfonamides; Z86.711 Personal history of pulmonary embolism
CPT/HCPCS: 36415; 71045; 80048; 80053; 80061; 83036; 83735; 84484; 85007; 85025; 85027; 85379; 93005; 93306; 96372; 96374; 96375; 96376; 99285; A9270; G0378; J1170; J1650; J2405; J7050; 93010